=== PATIENT | female | born 1980 | race Caucasian/White ===

== ENCOUNTER 2017-07-18 21:51 | Emergency (ER) | payer OTHER ==
[~2017-07-18] VITALS: Ht 162.6 cm; Wt 50.8 kg
--- NOTE | 2017-07-18 23:20 | NUR ---
Franky okeefe in ED - 07/18/17 at [address] Peña at [facility] for MSE.
--- NOTE | 2017-07-18 23:40 | NUR ---
Dr. Peña at bedside for MSE.
--- NOTE | 2017-07-18 23:50 | NUR ---
Patient discharged to home in stable conditon. Written and verbal after care instructions given. Patient verbalizes understanding of instructions. Patient ambulated out of ER with steady gait, no acute signs of distress, VSS, all belongings taken.
[2017-07-19 00:17] VITALS: BP 130/76
== END 2017-07-18 23:50 | disposition home or self-care (01) ==
LOC: ER 21:52
DX: A49.02 Methicillin resistant Staphylococcus aureus infection, unspecified site (principal)
CPT/HCPCS: A4663

== ENCOUNTER 2018-12-09 06:03 | Emergency (ER) | payer OTHER ==
[~2018-12-09] VITALS: Ht 162.6 cm; Wt 59.0 kg
[2018-12-09] MEDS ORDERED: LIDOCAINE HCL 1% 20 ML VIAL TP ONE (06:45)
[2018-12-09] MEDS ORDERED: TDAP DIPH,PERTUSS,TET VAC/PF 0.5 ML DISP.SYRIN IM ONE ×2 (06:45→07:14)
--- NOTE | 2018-12-09 07:06 | NUR ---
Report given to Snehal hamilton.
[2018-12-09 07:22] VITALS: BP 111/71
== END 2018-12-09 07:23 | disposition home or self-care (01) ==
LOC: ER 06:05
DX: S01.81XA Laceration without foreign body of other part of head, initial encounter (principal); M54.2 Cervicalgia; F41.9 Anxiety disorder, unspecified; W01.0XXA Fall on same level from slipping, tripping and stumbling without subsequent striking against object, initial encounter; Y93.89 Activity, other specified; Y92.89 Other specified places as the place of occurrence of the external cause; Y99.8 Other external cause status
CPT/HCPCS: 12011; 99283; J3490; 90715; A4663